=== PATIENT | male | born 1955 | race Caucasian/White ===

== ENCOUNTER → 2017-05-12 | Outpatient (CLI) | payer OTHER ==
[~2017-05-12] MED LIST: ASPIR 8181 MG PO; AZITHROMYCIN 2250 MG PO; BRILINTA90 MG PO; LIPITOR20 MG PO; LISINOPRIL10 MG PO; LISINOPRIL5 MG PO; METOPROLOL TART25 MG PO; NITROSTAT0.4 M1 SUBLING; PAXIL10 MG PO; PREDNISONE 20 M20 M1 PO; PREDNISONE 20 M20 MG PO; TUDORZA PRESS400 MCG INH
== END ==
LOC: M.RAD 12:05
DX: J18.9 Pneumonia, unspecified organism (principal); Z95.5 Presence of coronary angioplasty implant and graft

== ENCOUNTER → 2017-06-21 | Outpatient (CLI) | payer OTHER ==
--- NOTE | 2017-06-21 17:27 | CARDNUC ---
[place] [address] CARDIAC NUCLEAR IMAGING REPORT Name: NIKOS PEMBERTON Room: [facility]#: [id number] Admission: 06/21/17 Attend Phys: London Mclaughlin, Discharge: Date of : 55 Date of Service: 06/21/17 1727 Report #: [id number] THIS REPORT FOR: //name// APPROVED REPORT Study performed: 06/21/2017 08:45:00 Exam: Nuclear Stress Test Indication: Chest pain, Dyspnea Patient Location: Out-Patient Stress Tech: Radha Rodriguez Stress Nurse: Freya Deal RN Ht: 5 ft 10 in Wt: 199 lbs BSA: 2.08 m2 BMI: 28.55 Medical History Medical History: mi, pci, cad, hyperlipidemia, hypertension Medications: [id number] Allergies: nkda Cardiac Risk Factors: age, hyperlipidemia, hypertension, tobacco Previous Cardiac Procedures: pci with stents Exercise History: Physically active Stress Test Details Stress Test: Pharmacologic stress was paired with low level exercise. Reason for pharmacologic stress test: physical limitation. HR Resting HR: 86 bpm Max Heart Rate (APMHR): 159 bpm Max HR Achieved: 121 bpm Target HR (85% APMHR): 135 bpm % of APMHR: 76 Recovery HR: 102 bpm HR response to stress: Normal HR response to stress BP Resting BP: 134/93 mmHg Max BP: 181/83 mmHg BP response to stress: Abnormal hypertensive response [place] [address] CARDIAC NUCLEAR IMAGING REPORT Name: NIKOS PEMBERTON Room: [facility]#: [id number] Admission: 06/21/17 Attend Phys: London Mclaughlin, Discharge: Date of : 55 Date of Service: 06/21/17 1727 Report #: [id number] Resting ECG: Sinus Rhythm, one VPC otherwise normal EKG Stress ECG: sinus rhythm with VPCs otherwise normal EKGs ST Change: None Arrhythmia: VPC's, APC's Recovery ECG: normal sinus rhythm with VPCs otherwise normal EKGs Recovery ST Change: None Recovery Arrhythmia: VPCs Clinical Reason for Termination: Completed protocol Stress Symptoms: none Exercise duration: 0 min sec Exercise capacity: 1 METs Functional Aerobic Impairment 76% Nurse Comments pt tolerated well Stress ECG Conclusion Normal hemodynamic response to pharmacologic stress. Clinical: Non-ischemic Non-diagnostic EKG stress due to failure to attain target HR. NM EXAM: Myocardial Perfusion REST/STRESS Imaging Protocol: Rest Tc-99m/Stress Tc-99m 1 day Resting Data Rest SPECT myocardial perfusion imaging was performed in supine position 30 minutes following the intravenous injection of 11.5 mCi of Tc-99m Sestamibi. Time of rest injection: 0905 Time of rest imagin The images were gated to evaluate regional wall motion and calculate left ventricular ejection fraction. Administration Route: IV Administration Site: Right Hand Pharmacologic Stress Pharmacologic stress test was performed by injecting Regadenoson 0.4 mg IV push followed by the intravenous injection of 34.4 mCi of Tc-99m Sestamibi. Time of stress injection: 1030 Time of stress imagin Administration Route: IV Administration Site: [place] [address] CARDIAC NUCLEAR IMAGING REPORT Name: NIKOS PEMBERTON Room: [facility]#: [id number] Admission: 06/21/17 Attend Phys: London Mclaughlin, Discharge: Date of : 55 Date of Service: 06/21/17 1727 Report #: [id number] Heart Rate at time of stress injection: 121 bpm. Gated Stress SPECT was performed 40 minutes after stress injection. The images were gated to evaluate regional wall motion and calculate left ventricular ejection fraction. Prone imaging was performed. Study Quality Study: Fair Artifact: Mild Soft tissue attenuation artifact Lung Uptake: Normal Study Data At rest, the left ventricular ejection fraction was 45%.. Post stress, the left ventricular ejection was 42%.. TID = 1.00. Perfusion The resting study demonstrated a small in size and moderate in intensity apical defect. There is also a small very mild septal defect and a moderate in size and mild to moderate intensity inferior defect particularly near the base. The post stress images were unchanged from those seen at rest except there were inferior defect was moderate in size and moderate in intensity and was worsening of the base. Prone images were obtained and demonstrated a small mild apical defect and a small mild inferior defect particularly near the base. There were no reversible defects seen there was no evidence of myocardial ischemia the fixed inferior and apical defects could be due to prior infarcts in that area are they could be due to soft tissue attenuation. There were no segmental wall motion abnormality seen on the gated study so clear-cut evidence of a prior infarct is not seen. Images were reviewed using [employer] acquired by [employer]. Wall Motion Normal left ventricular wall motion. Nuclear Conclusion ECG Findings: non-diagnostic Clinical Findings: negative for ischemia Nuclear Findings: negative for ischemia Exercise Capacity: not assessed Left Ventricular Function: abnormal Risk Study: low to at most moderate risk The Lexiscan Cardiolite stress test demonstrates low probability for myocardial ischemia. There is mild left systolic [place] [address] CARDIAC NUCLEAR IMAGING REPORT Name: NIKOS PEMBERTON Room: [facility]#: [id number] Admission: 06/21/17 Attend Phys: London Mclaughlin, Discharge: Date of : 55 Date of Service: 06/21/17 1727 Report #: [id number] inferoapical infarct cannot be excluded. However there is not clear-cut segmental wall motion abnormality to be sure of a prior infarct. Attenuation artifact cannot be excluded. Overall this is a low to at most moderate risk study <Conclusion> Normal hemodynamic response to pharmacologic stress. Clinical: Non-ischemic Non-diagnostic EKG stress due to failure to attain target HR. <ELECTRONICALLY SIGNED> By: Pasha Tyson MD, [facility] 06/21/171726 26 26 Pasha Tyson MD, FACC /INF
== END ==
LOC: M.NUC 06-08 15:49
DX: R07.9 Chest pain, unspecified (principal); R06.00 Dyspnea, unspecified; I25.10 Atherosclerotic heart disease of native coronary artery without angina pectoris; E78.5 Hyperlipidemia, unspecified; Z95.5 Presence of coronary angioplasty implant and graft